=== PATIENT | male | born 1985 | race Caucasian/White ===

== ENCOUNTER → 2017-05-23 | Outpatient (CLI) | payer OTHER ==
--- NOTE | 2017-05-23 09:07 | RAD ---
Abdominal ultrasound, 05/23/2017: History: Elevated liver function test The gallbladder is within normal limits in size. It contains a small amount of echogenic material without posterior acoustic shadowing. The appearance is that of biliary sludge. The gallbladder vergara are not thickened. No bile duct dilatation is seen. The liver is at the upper limits of normal in size. It demonstrates generalized increased echogenicity most commonly due to fatty change. No hepatic mass is evident. The visualized portions of the pancreas, aorta, inferior vena cava and both kidneys are unremarkable. The spleen is at the upper limits of normal in size measuring 13.6 cm in craniocaudad extent. No free fluid is evident in the abdomen. IMPRESSION: 1. Minimal sludge in the gallbladder. 2. Increased hepatic echogenicity compatible with hepatic steatosis. 3. The liver and spleen are both at the upper limits of normal in size.
== END | disposition home or self-care (01) ==
LOC: US 06:44
PROVIDERS: ATTEND Family Medicine
DX: K76.0 Fatty (change of) liver, not elsewhere classified (principal)
CPT/HCPCS: 76700